=== PATIENT | female | born 2005 | race Caucasian/White ===

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

== ENCOUNTER 2024-02-07 12:08 | Emergency (ER) | payer BC, SELFPAY ==
[2024-02-07 12:10] VITALS: BP 115/80; PULSE 115; RESP 16; TEMP 36.7; O2SAT 98
--- NOTE | 2024-02-07 12:46 | W.ED.GENAD ---
Discharge Plan Disposition Patient Disposition: Home Condition: Stable Discharge Details Clinical Impression: Urinary tract infection Primary Care Provider: Zheng Guzman ED Provider: Deandre Gao Home Meds and New Rx's Prescriptions: New cefpodoxime 200 mg tablet 200 mg PO BID 10 Days Qty: 20 0RF Rx Instructions: must administer with a meal/food Continued quetiapine 50 mg tablet 50 mg PO QHS Qty: 90 1RF lamotrigine 100 mg tablet See Rx Instructions PO DAILY Qty: 90 1RF Rx Instructions: Take 1/2 (half) tab, qAM x 2 weeks then Take 1 tab, qAM orally daily until next appointment; dexmethylphenidate [Focalin] 10 mg tablet 10 mg PO BID MDD 20mg Qty: 56 0RF Rx Instructions: administer doses at least 4 hours apart sulfamethoxazole-trimethoprim 800-160 mg tablet 1 tab PO DAILY Discharge Instructions Instructions: Cefpodoxime, Urinary Tract Infection, Adult ED Additional Instructions: You were seen in the emergency department for your continued UTI despite Bactrim use. I am starting on a second antibiotic sent to [facility]. Please take both antibiotics as directed, finish all the antibiotics, you may purchase [id number] AZO to help with discomfort and symptomatic relief of urethral pain. Please stay well-hydrated, return for any severe increase in pain, fevers, flank pain, urinary retention, gross hematuria Referrals: Zheng Guzman, DIRECT SUPPORT SPECIALIST [Primary Care Provider] - Discharge Data Discharge Date/Time-TO BE ENTERED AT DEPARTURE: 02/07/24 13:40 HPI General Date/Time Provider Initiated Documentation: 02/07/24 12:10. HPI Narrative: 18 year-old female presents to ED today by POV/ambulating with a chief complaint of dysuria- diagnosed with UTI at [facility] yesterday, placed on Bactrim with continued pelvic pain and dysuria, with some hematuria today. Quality described as dysuria, no improvement, no radiation to fever, nausea, weakness, discharge, . Severity is described as moderate. Palliating factors include Bactrim for 1 day with no relief yet. Provoking factors include nothing specific. Patient not anticoagulated. Related Data Home Medications ?Medication ?Instructions ?Recorded ?Confirmed dexmethylphenidate 10 mg tablet 10 mg PO BID #56 tabs 01/13/24 02/07/24 (Focalin) lamotrigine 100 mg tablet See Rx Instructions PO DAILY #90 01/13/24 02/07/24 tabs quetiapine 50 mg tablet 50 mg PO QHS #90 tabs 01/13/24 02/07/24 cefpodoxime 200 mg tablet 200 mg PO BID UTI/pyelonephritis 02/07/24 10 days #20 tabs sulfamethoxazole 800 1 tab PO DAILY 02/07/24 02/07/24 mg-trimethoprim 160 mg tablet Previous Rx's ?Medication ?Instructions ?Recorded dexmethylphenidate 10 mg tablet 10 mg PO BID #56 tabs 01/13/24 (Focalin) lamotrigine 100 mg tablet See Rx Instructions PO DAILY #90 01/13/24 tabs quetiapine 50 mg tablet 50 mg PO QHS #90 tabs 01/13/24 cefpodoxime 200 mg tablet 200 mg PO BID UTI/pyelonephritis 02/07/24 10 days #20 tabs Allergies Allergy/AdvReac Type Severity Reaction Status Date / Time No Known Allergies Allergy Unverified 02/07/24 12:14 General Stated Complaint: Urinary ARIANNA: 3 Review of Systems All systems reviewed & are unremarkable except as noted in HPI and below Exam Narrative Exam Narrative: GENERAL APPEARANCE: Well-nourished, non-toxic, awake and alert, atraumatic, no acute distress. SKIN: Warm, pink, dry, intact, without rashes/lesions/ulcerations. HEAD: Normocephalic, atraumatic, normal hair distribution for gender/age. EYES: Normal conjunctiva, no exudates on lids/lashes. ENT: Nares patent, no circumoral cyanosis, no facial swelling NECK: Supple, trachea midline, painless cervical ROM. LUNGS/CHEST: Lungs CTA bilaterally, non-labored respirations, normal A/P diameter, symmetrical expansion, no chest wall deformity HEART (CV/PV): Regular rate and rhythm without murmur, no peripheral edema, no JVD. ABDOMEN: Soft, non-distended, no guarding, mild suprapubic discomfort. MSK: Normal ROM, no swelling/deformity to bilateral UEs or LEs, moving all extremities without weakness, no cyanosis, spine midline without tenderness, normal curvature. NEURO: Mental Status AAOx4 - alert to person, place, time, events No facial droop, no forehead involvement. Motor: No focal weakness - strength 5/5 in bilateral UEs and LEs, proximal and distal, symmetric. Sensory: sensation intact to light touch globally. Gait normal: patient ambulated without ataxia into ED room. PSYCH: euthymic, cooperative, pleasant, appropriate speech Course Vital Signs Vital signs: Vital Signs Temperature 36.7 C 02/07/24 12:10 Pulse 115 H 02/07/24 12:10 Respiratory Rate 16 02/07/24 12:10 Blood Pressure 115/80 02/07/24 12:10 Pulse Oximetry 98 02/07/24 12:10 Temperature 36.7 C 02/07/24 12:10 Temperature Source Oral 02/07/24 12:10 Pulse 115 H 02/07/24 12:10 Respiratory Rate 16 02/07/24 12:10 Blood Pressure 115/80 02/07/24 12:10 Blood Pressure Position Sitting 02/07/24 12:10 Pulse Oximetry 98 02/07/24 12:10 Oxygen Delivery Method Room Air 02/07/24 12:10 Oxygen Flow Rate 0 02/07/24 12:10 Pain Level 4 02/07/24 12:10 Medical Decision Making This dictation utilizes [id number] dictation software and may contain unedited grammatical errors. 18 year-old female presents to ED today by POV/ambulating with a chief complaint of dysuria- diagnosed with UTI at [facility] yesterday, placed on Bactrim with continued pelvic pain and dysuria, with some hematuria today. Quality described as dysuria, no improvement, no radiation to fever, nausea, weakness, discharge, . Severity is described as moderate. Palliating factors include Bactrim for 1 day with no relief yet. Provoking factors include nothing specific. Patients' medical history: Female to male transgender, history of UTI, history of STD screening. Family and social history: noncontributory. Pertinent exam findings / vital signs include mild suprapubic discomfort, no CVA tenderness to percussion bilaterally, normal heart rate on auscultation. Differential / pathologies of concern include UTI not covered by Bactrim, pyelonephritis, likely sepsis or PID. Diagnostic studies of: UA, still shows greater than 50 WBCs Interventions of: -Adding cefpodoxime to Bactrim regimen, continuing both. ED Course/Assessment/Plan: 18-year-old female arrives with started on Bactrim for UTI yesterday and states that is worsening she is having some hematuria, her UA today still shows greater than 50 whites, negative for nitrites, I did add cefpodoxime to her regimen and recommend she continue the Bactrim, strict return criteria for any worsening despite treatment.. Findings not consistent with sepsis, PID, pyelonephritis. Disposition of Urinary Tract Infection. Patient verbalized understanding of the plan and return to ED criteria and engaged in shared decision making. Medical Records Medical records reviewed: Yes I reviewed the patient's medical records. Lab Data Lab results reviewed: Yes I reviewed the patient's lab results. Labs: Laboratory Tests Range/Units 02/07/24 12:30 Urine Color (Yellow) Yellow Urine Clarity (Clear) Cloudy Urine pH (5-8) 6.0 Ur Specific [place] (1.005-1.025) >= 1.030 H Urine Protein (Neg-Trace) mg/dL >=300 H Urine Ketones (Negative) mg/dL Negative Urine Blood (Negative) Large H Urine Nitrite (Negative) Negative Urine Bilirubin (Negative) Negative Urine Urobilinogen (Up to 0.2) mg/dL 2.0 H Ur Leukocyte Esterase (Negative) Small H Urine RBC (0-2) HPF Urine WBC (0-5) HPF >50 H Ur Epithelial Cells (Negative) HPF Many Urine Crystals Not Applicable Urine Bacteria (Negative) HPF Moderate Urine Mucus (Negative) Trace Ur Culture Indicated? No/Sq. Contamination Urine Glucose (Negative) mg/dL Negative Quality:SDOH Health Related Social Needs: Health related social needs housing instability, housed, with risk of homelessness(Z59.811) Health related social needs details none PFSH All Active Problems (Updated 02/07/24 @ 13:29 by ABISAI Pérez) Urinary tract infection (Acute) Bipolar disorder, unspecified (Acute) ADHD (Chronic) Depression (Chronic) Social anxiety disorder (Chronic) Generalized anxiety disorder (Chronic) Obsessive compulsive disorder (Chronic) Medical History [id number] transgender person On T- injections; taking OCP- Lo-estrin w/iron Dec 2023... no longer transitioning. No more T. IUD (intrauterine device) in place 05/07/2023 Kyleena Body image disturbance UTI (urinary tract infection) Screen for STD (sexually transmitted disease) Hydrosalpinx Surgical History History of appendectomy complicated by a pelvic abscess formation requiring surgery and drainage in 2018 Ruptured appendicitis Family History Mother Wheeze post LRI, treated with primatine tabs Father Well adult Substance abuse Grandfather Heart disease MGM Hyperlipidemia MGM Grandmother Heart disease MGF Hyperlipidemia MGF Social History (Updated 01/13/24 @ 14:23 by Theresa Gonzalez NP) Smoking/Tobacco Use Status: Never Second Hand Exposure: No Smoking risk assessment performed?: Yes Alcohol Intake: never Drug use: Rarely Substance use type: marijuana Adopted: No Caregiver/Support person: No Foster care: No Household members: none Housing: house Number of Children: 0 number of grandchildren: 0 Communication Needs: None Do you need help understanding health information?: Never current occupation: works at [employer] Pets and animals: Yes (3 cats) Pets and animals: cat(s) Sexually active: Yes Do you think of yourself as: bisexual Current gender identity: trans [id number] What is your relationship status?: never How often do you talk on the phone with friends or family?: three or more times per week How often do you get together with friends or relatives?: once per week Panel score (0-1 are the most socially isolated patients): 1 Seatbelt use: always Drive intox or ride w/intox wheelchair driver: No Firearms in home: No Do you feel safe at home: Yes Do you feel safe in your relationship?: Yes Victim of physical abuse: No Victim of emotional abuse: No Victim of sexual abuse: No Would you like helpful sources: No Additional Social history: 01/16/2023 boyfriend-Amelia x 5 months Female Reproductive History Menstrual Age of Menarche: 11
[2024-02-07 12:48] VITALS: BP 115/80; PULSE 115; RESP 16; TEMP 36.7; O2SAT 98
[2024-02-07 12:51] LABS: Bilirubin Negative (Negative); Blood Large (Negative); Clarity Cloudy (Clear); Glucose Negative (Negative); Ketones Negative (Negative); Leukocyte Esterase Small (Negative); Nitrite Negative (Negative); Specific Gravity >= 1.030 (1.005-1.025)
[2024-02-07 13:02] LABS: Bacteria Moderate HPF (Negative); Epithelial Cells Many HPF (Negative); WBC >50 HPF (0-5)
[2024-02-07 13:03] LABS: C & S Indicated? No/Sq. Contamination; Mucus Trace (Negative)
== END 2024-02-07 13:40 | disposition home or self-care (01) ==
PROVIDERS: Emergency Provider Physician Assistant; PCP Nurse Practitioner Family
DX: R30.0 Dysuria (principal); R10.30 Lower abdominal pain, unspecified; N39.0 Urinary tract infection, site not specified
CPT/HCPCS: 99283; 81003; 81015